=== PATIENT | male | born 1930 | race Caucasian/White ===

== ENCOUNTER 2019-03-11 07:44 | Emergency (ER) | payer MEDICARE, OTHER ==
[2019-03-11] MEDS: DILTIAZEM 25 MG INJ IV (08:28)
== END 2019-03-11 10:30 | disposition home or self-care (01) ==
LOC: E/R 07:44
DX: I48.91 Unspecified atrial fibrillation (principal); I10 Essential (primary) hypertension; R40.2142 Coma scale, eyes open, spontaneous, at arrival to emergency department; R40.2362 Coma scale, best motor response, obeys commands, at arrival to emergency department; R40.2252 Coma scale, best verbal response, oriented, at arrival to emergency department; Z79.01 Long term (current) use of anticoagulants
CPT/HCPCS: 36415; 71045; 80053; 83690; 83880; 84484; 85025; 85610; 85730; 93005; 96374; 99291-25